=== PATIENT | female | born 1995 | race Caucasian/White ===

== ENCOUNTER 2016-12-12 14:44 | Inpatient (IN) | payer OTHER ==
[~2016-12-12] VITALS: Ht 160 cm; Wt 87.1 kg
[~2016-12-12 14:44] MED LIST: ACET325T33 PO; HYDR-906 PO; PRENAT PO
[2016-12-12 14:54] VITALS: Ht 160 cm; Wt 87.1 kg
[2016-12-12 14:55] VITALS: BP 109/56; PULSE 85; RESP 18
[2016-12-12] MEDS ORDERED: LACTATED RINGER'S 1,000 ML IV* SCH (15:30)
--- NOTE | 2016-12-12 16:33 | TRIAGE ---
OB Triage Datetime Report Generated by CPN: 12/12/2016 16:32 Datetime: 12/12/2016 16:00 Stage of : OB Triage Maternal Assessment Level of Consciousness: Fully Conscious Labor Evaluation Frequency: 6UC/HR Monitor Mode: External Duration (sec)2399: 50-90 Quality: Moderate Resting Tone [place]: Relaxed Heart Rate FHR Baseline Rate: 145 Monitor Mode: External US Variability: Moderate 6-25 bpm Accelerations: 15X15 Decelerations: None Pain Assessment Pain Scale: 7 Pain Presence: Intermittent Pain Type: Cramping Pain Location: Abdomen Pain Goal: 3 Pain Relief Measures: Comfort Measures Membrane Status: Intact Vaginal Bleeding: None Datetime: 12/12/2016 15:45 Vaginal Exam Dilatation (cms): 0.0 Exam By: khemani Datetime: 12/12/2016 14:53 Assessment Type: Triage Maternal Assessment Level of Consciousness: Fully Conscious DTR's/Clonus: DTRs 2+; No Clonus Headache: Denies Blurred Vision: No Respiratory Effort: Unlabored; Regular Rhythm; Equal Expansion Breath Sounds, Left: Clear and Equal Breath Sounds, Right: Clear and Equal Nausea/Vomiting: Denies RUQ Epigastric Pain: Denies Lower Extremities Edema: None Degree: None Upper Extremities Edema: None Degree: None Facial Edema: None Fall Risk Assessment History of Falling: (0) No Secondary Diagnosis: (0) No Ambulatory Aid: (0) Bedrest/Nurse Assist IV Therapy: (0) No Gait: (0) Normal/Bedrest/Immobile Mental Status: (0) Oriented to Own Ability Fall Score: 0 Fall Risk Score Definition: No Risk: No action required Datetime: 12/12/2016 14:47 Monitor Mode: External US Datetime: 08/29/2016 17:10 Time of Arrival: 12/12/2016 14:35 EGA: 36.0 Arrived By: Ambulatory Arrived From: Other Unit in Hospital Chief Complaint: PT SENT FROM [facility] FOR EVAL. OF UC'S Movement: Present Contractions: Irregular Rupture of Membranes: Denies Vaginal Bleeding: None Vaginal Discharge: Denies Recent Sexual Intercouse: Denies Abdominal Trauma: Not Applicable Patient Complaints: Cramping Time Provider Notified: 12/12/2016 14:35 Provider Notified: DELSHAD Initial Plan: EFM, IV HYDRATION, SVE Datetime: 08/29/2016 16:30 EGA: 21.0 Fall Score: 0 Fall Risk Score Definition: No Risk: No action required
[2016-12-12] MEDS: LACTATED RINGER'S 1,000 ML IV SCH (18:21)
[2016-12-13] MEDS: LACTATED RINGER'S 1,000 ML IV SCH ×2 (00:46→07:00)
[2016-12-13] MEDS ORDERED: TERBUTALINE 1 ML ONE (08:15)
[2016-12-13] MEDS ORDERED: TERBUTALINE 1 MG/ML INJ SC ONE (08:30)
[2016-12-13 09:04] LABS: ADD UMIC YES; URINE BILIRUBIN (Dip) NEGATIVE (NEGATIVE); URINE BLOOD (Dip) NEGATIVE (NEGATIVE); URINE COLOR LT. YELLOW (YELLOW); URINE GLUCOSE (Dip) NEGATIVE (NEGATIVE); URINE KETONES (Dip) NEGATIVE (NEGATIVE); URINE LEUKOCYTE ESTERASE (Dip) 3+ (NEGATIVE); URINE NITRITE (Dip) NEGATIVE (NEGATIVE); URINE TOTAL PROTEIN (Dip) NEGATIVE (NEGATIVE); URINE UROBILINOGEN (Dip) 0.2 E.U./dL (0.1-1.0)
[2016-12-13 09:35] LABS: BACTERIA,URINE OCCASIONAL; SQUAMOUS EPITHELIAL CELL,UR MODERATE; URINE RBCS NONE SEEN /HPF (0)
--- NOTE | 2016-12-13 12:18 | PN ---
Date/Time of Note Date/Time of Note DATE: 12/13/16 TIME: 12:11 OB Subjective Subjective Subjective Patient reports her pain is significantly less. She reports it now 3 out of 10. She denies leaking of fluid, vaginal bleeding or decreased movement. She denies any dysuria. She has no other complaints. OB Objective Objective Objective General appearance: Alert and oriented 4 and is not in any acute distress. Abdomen: Soft, gravid, nontender, no rebound tenderness no guarding no rigidity Fundal height consistent with gestational age NST: Appropriate for gestational a category 1, contractions every 3-6 minute noted. Patient does not feel all of them Extremities: No calf tenderness, no click no edema OB Assessment/Plan Other Assessment: IUP at 36+ weeks History of section 2 Here for observation due to contractions last night, significantly improved with IV hydration and rest Denies any urinary symptoms. UA requested, positive for leukocyte esterase Patient is asymptomatic. Urine culture requested Continue observation Patient was given a dose of terbutaline If symptoms resolve can go home with a strict labor precaution and follow-up with clinic in a couple of days We will have her urine culture followed in the clinic from the hospital Patient understands if she feels recurrence of her symptoms need to immediately return to labor and delivery Strict labor precautions and kick count discussed HARLEY CALDERÓN MD Dec 13, 2016 12:18
--- NOTE | 2016-12-13 12:23 | PD.PPDC ---
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 Headache, blurred vision, epigastric pain, or any other concerns. HARLEY CALDERÓN MD Dec 13, 2016 12:22
--- NOTE | 2016-12-13 12:31 | DS ---
Date/Time of Note Date/Time of Note DATE: 12/13/16 TIME: 12:23 Discharge Summary Admission/Discharge Info Admit Date/Time Dec 12, 2016 at 16:30 Discharge Date/Time 12/13/2016 Final Diagnosis False labor pain, resolved with hydration as well as one single dose of terbutaline Patient Condition: Good Procedures observation, overnight and IV hydration S/p one dose of terbutaline urine culture requested Hx of Present Illness 21 years old with IUP at 36 weeks and 1 day with History of C/s x 2 and care with Kira Wilson was admited by Dr. Malone last night due to false labor pain. She was admitted for observation. Received IV hydration. She was kept overnight. His symptoms significantly improved. Exam shows cervix was closed and long and she did not show any evidence of labor. She denied any urinary symptoms. UA was equivocal. Urine culture was requested that was pending. She was feeling slight discomfort due to mild contractions that resolved after she received a dose of terbutaline. She was feeling comfortable. There was no contraction noted on the monitor after observation and above measures. She tolerated diet and denied any symptoms. She was discharged home with strict labor precautions and kick count and follow-up in 2 days with OB office. She was advised to have a follow-up with her urine culture that was obtained in the hospital with OB office when she goes for her care. Also strict labor precautions discussed with the patient and advised to immediately return if she has regular contractions, decreased movement or any other concerns Hospital Course Unremarkable Home Meds Reported Medications Multivit/Min/Fol Ac/Iron/Pren* ( S*) 1 Tab Tab, 1 TAB PO DAILY, TAB 08/29/16 Discontinued Scripts Acetaminophen* (Tylenol*) 325 Mg Tablet, 2 TAB PO Q6 Y for PAIN AND OR ELEVATED TEMP, #20 TAB Prov:KELLEY AGUILAR DO 08/29/16 Hydrocodone/Acetaminophen ([place] 5-325 Tablet) 1 Each Tablet, 1 TAB PO Q6H Y for SEVERE PAIN LEVEL 7-10, #7 TAB Prov:KELLEY AGUILAR DO 08/29/16 Follow-up Plan In 2-3 days with her OB office Pending Labs Laboratory Tests Test 12/13/16 08:20 Urine Bacteria OCCASIONAL Urine Bilirubin NEGATIVE (NEGATIVE) Urine Clarity CLEAR (CLEAR) Urine Color LT. YELLOW (YELLOW) Urine Glucose NEGATIVE% (NEGATIVE) Urine Hemoglobin NEGATIVE (NEGATIVE) Urine Ketones NEGATIVE (NEGATIVE) Urine Leukocyte Esterase 3+ (NEGATIVE) Urine Microscopic RBC NONE SEEN/HPF (0) Urine Microscopic WBC 2-5/HPF (0) Urine Nitrite NEGATIVE (NEGATIVE) Urine Specific Gay 1.010 (1.003-1.030) Urine Squamous Epithelial Cells MODERATE Urine Total Protein NEGATIVE (NEGATIVE) Urine Urobilinogen 0.2 E.U./dL (0.1-1.0) Urine pH 7.5 (5.0-9.0) HARLEY CALDERÓN MD Dec 13, 2016 12:31
== END 2016-12-13 14:00 | disposition home or self-care (01) | DRG 780 ==
LOC: OBT 14:44 → L-D 14:44 → OBG 16:30 → OBT 16:30
PROVIDERS: ADMIT Obstetrics & Gynecology; ATTEND Obstetrics & Gynecology
DX: O47.03 False labor before 37 completed weeks of gestation, third trimester (principal); O34.219 Maternal care for unspecified type scar from previous cesarean delivery; Z3A.36 36 weeks gestation of pregnancy
CPT/HCPCS: 36415; 81001; 81003; 87086; 96360; G0463; J3105; J7120

== ENCOUNTER 2016-12-20 15:46 | Outpatient (CLI) | payer OTHER ==
[~2016-12-20 15:46] MED LIST changes: -ACET325T33 PO; -HYDR-906 PO
[2016-12-20] MEDS ORDERED: ACETAMINOPHEN 325 MG TAB PO ONE (16:30)
--- NOTE | 2016-12-20 17:46 | TRIAGE ---
OB Triage Datetime Report Generated by CPN: 12/20/2016 17:45 Datetime: 12/20/2016 16:21 Level of Consciousness: Fully Conscious DTR's/Clonus: DTRs 1+ Headache: Occipital Blurred Vision: No Respiratory Effort: Unlabored Breath Sounds, Left: Clear and Equal Breath Sounds, Right: Clear and Equal Nausea/Vomiting: Denies RUQ Epigastric Pain: Denies Facial Edema: 1+ Pattern: Normal: <= 5 Contractions in 10 Minutes Resting Tone Diablock: Relaxed FHR Baseline Rate: 140 Monitor Mode: External US FHR Baseline Changes: No Baseline Change Variability: Moderate 6-25 bpm Accelerations: 15X15 Decelerations: None Category: Category I Pain Scale: 3 Pain Presence: Constant Pain Type: Ache Pain Location: Head Pain Goal: 3 Membrane Status: Intact Datetime: 12/20/2016 16:00 Assessment Type: Triage Level of Consciousness: Fully Conscious DTR's/Clonus: DTRs 2+; No Clonus Headache: Denies Blurred Vision: No Respiratory Effort: Unlabored; Regular Rhythm; Equal Expansion Breath Sounds, Left: Clear and Equal Breath Sounds, Right: Clear and Equal Nausea/Vomiting: Denies RUQ Epigastric Pain: Denies Lower Extremities Edema: None Degree: None Upper Extremities Edema: None Degree: None Facial Edema: None History of Falling: (0) No Secondary Diagnosis: (0) No Ambulatory Aid: (0) Bedrest/Nurse Assist IV Therapy: (0) No Gait: (0) Normal/Bedrest/Immobile Mental Status: (0) Oriented to Own Ability Fall Score: 0 Fall Risk Score Definition: No Risk: No action required Datetime: 12/20/2016 15:45 Time of Arrival: 12/20/2016 15:45 EGA: 37.1 Arrived By: Ambulatory Arrived From: Other Unit in Hospital Chief Complaint: PT CAME IN FROM NST UNIT STATING THAT SHES HAVING CONTRACTIONS EVERYTIMES Movement: Present Contractions: Irregular Time Contractions Began: 12/19/2016 12:00 Rupture of Membranes: Denies Vaginal Discharge: Denies Recent Sexual Intercouse: Denies Abdominal Trauma: Not Applicable Additional Patient Complaints: HEADACHE Time Provider Notified: 12/20/2016 16:20 Provider Notified: BONIFACIO Initial Plan: MONITOR FOR UC'S TYLENOL 650 MG PO Datetime: 12/13/2016 14:00 Stage of : Antepartum Frequency: none Monitor Mode: External Resting Tone Diablock: Relaxed FHR Baseline Rate: 145 FHR Baseline Changes: No Baseline Change Variability: Moderate 6-25 bpm Accelerations: 15X15 Decelerations: None Category: Category I Pain Scale: 0 Pain Presence: None/Denies Pain Goal: 3 Datetime: 12/13/2016 13:00 Stage of : Antepartum Frequency: NONE Monitor Mode: External Resting Tone Diablock: Relaxed FHR Baseline Rate: 140 FHR Baseline Changes: No Baseline Change Variability: Moderate 6-25 bpm Accelerations: 15X15 Decelerations: None Category: Category I Pain Scale: 0 Pain Presence: None/Denies Pain Goal: 3 Datetime: 12/13/2016 12:30 Stage of : Antepartum Datetime: 12/13/2016 12:00 Stage of : Antepartum Frequency: NONE Monitor Mode: External Resting Tone Diablock: Relaxed FHR Baseline Rate: 145 FHR Baseline Changes: No Baseline Change Variability: Moderate 6-25 bpm Accelerations: 15X15 Decelerations: None Category: Category I Pain Scale: 0 Pain Presence: None/Denies Pain Goal: 3 Datetime: 12/13/2016 11:00 Stage of : Antepartum Frequency: NONE Monitor Mode: External Resting Tone Diablock: Relaxed FHR Baseline Rate: 140 Monitor Mode: External US FHR Baseline Changes: No Baseline Change Variability: Moderate 6-25 bpm Accelerations: 15X15 Decelerations: None Category: Category I Pain Scale: 0 Pain Presence: None/Denies Pain Goal: 3 Datetime: 12/13/2016 10:26 Stage of : Antepartum Datetime: 12/13/2016 10:00 Stage of : Antepartum Frequency: UTRINE IRRITABILITY Monitor Mode: External Quality: Mild Pattern: Normal: <= 5 Contractions in 10 Minutes Resting Tone Diablock: Relaxed FHR Baseline Rate: 140 Monitor Mode: External US FHR Baseline Changes: No Baseline Change Variability: Moderate 6-25 bpm Accelerations: 15X15 Decelerations: None Category: Category I Pain Scale: 2 Pain Presence: Intermittent Pain Type: Cramping Pain Location: Abdomen Pain Goal: 3 Pain Relief Measures: Comfort Measures Datetime: 12/13/2016 09:00 Stage of : Antepartum Frequency: 3 IN AN HOUR Monitor Mode: External Duration (sec)2399: 40-60 Quality: Mild Pattern: Normal: <= 5 Contractions in 10 Minutes Resting Tone Diablock: Relaxed FHR Baseline Rate: 130 Monitor Mode: External US FHR Baseline Changes: No Baseline Change Variability: Moderate 6-25 bpm Accelerations: 15X15 Decelerations: None Category: Category I Pain Scale: 2 Pain Presence: Intermittent Pain Type: Cramping Pain Location: Abdomen Pain Goal: 3 Pain Relief Measures: Comfort Measures Datetime: 12/13/2016 08:04 Stage of : Antepartum Datetime: 12/13/2016 08:00 Stage of : Antepartum Assessment Type: Ongoing Assessment Level of Consciousness: Fully Conscious DTR's/Clonus: DTRs 2+; No Clonus Headache: Denies Blurred Vision: No Respiratory Effort: Unlabored; Regular Rhythm; Equal Expansion Breath Sounds, Left: Clear and Equal Breath Sounds, Right: Clear and Equal Nausea/Vomiting: Denies RUQ Epigastric Pain: Denies Lower Extremities Edema: None Degree: None Upper Extremities Edema: None Degree: None Facial Edema: None History of Falling: (0) No Secondary Diagnosis: (0) No Ambulatory Aid: (0) Bedrest/Nurse Assist IV Therapy: (0) No Gait: (0) Normal/Bedrest/Immobile Mental Status: (0) Oriented to Own Ability Fall Score: 0 Fall Risk Score Definition: No Risk: No action required Frequency: 3-8 Monitor Mode: External Duration (sec)2399: 40-80 Quality: Mild Pattern: Normal: <= 5 Contractions in 10 Minutes Resting Tone Diablock: Relaxed FHR Baseline Rate: 140 Monitor Mode: External US FHR Baseline Changes: No Baseline Change Variability: Moderate 6-25 bpm Accelerations: 15X15 Decelerations: None Category: Category I Pain Scale: 3 Pain Presence: Intermittent Pain Type: Cramping Pain Location: Abdomen Pain Goal: 3 Pain Relief Measures: Comfort Measures Datetime: 12/13/2016 07:00 Frequency: x3 Monitor Mode: External Duration (sec)2399: 40 Quality: Mild Resting Tone Diablock: Relaxed FHR Baseline Rate: 145 Monitor Mode: External US Variability: Moderate 6-25 bpm Accelerations: 15X15 Decelerations: None Category: Category I Pain Presence: None/Denies Pain Type: N/A Pain Assessment Comments: pt stated pain is 0/10 on a scale,she appeared to be confortable. Datetime: 12/13/2016 06:00 Frequency: x3 Monitor Mode: External Duration (sec)2399: 40-50 Resting Tone Diablock: Relaxed FHR Baseline Rate: 135 Monitor Mode: External US Variability: Moderate 6-25 bpm Accelerations: 15X15 Decelerations: None Category: Category I Pain Presence: None/Denies Pain Type: N/A Datetime: 12/13/2016 05:00 Frequency: 0 Monitor Mode: External Resting Tone Diablock: Relaxed FHR Baseline Rate: 135 Monitor Mode: External US Variability: Moderate 6-25 bpm Accelerations: 15X15 Decelerations: None Category: Category I Datetime: 12/13/2016 04:00 Frequency: 0 Monitor Mode: External Resting Tone Diablock: Relaxed FHR Baseline Rate: 135 Monitor Mode: External US Variability: Moderate 6-25 bpm Accelerations: 15X15 Decelerations: None Category: Category I Comments: loc due to maternal movements. Datetime: 12/13/2016 03:00 Frequency: denies Monitor Mode: External Resting Tone Diablock: Relaxed FHR Baseline Rate: 140 Monitor Mode: External US Variability: Moderate 6-25 bpm Accelerations: 15X15 Decelerations: None Category: Category I Datetime: 12/13/2016 02:00 Frequency: 0 Monitor Mode: External Resting Tone Diablock: Relaxed FHR Baseline Rate: 140 Variability: Moderate 6-25 bpm Datetime: 12/13/2016 01:00 Frequency: 0 Monitor Mode: External Duration (sec)2399: DENIES Resting Tone Diablock: Relaxed Contraction Comments: SOME IRRITABILITY NOTED. FHR Baseline Rate: 140 Monitor Mode: External US Variability: Moderate 6-25 bpm Accelerations: 15X15 Decelerations: None Category: Category I Comments: LOSS OF CONTACT DUE TO MATERNAL MOVEMENTS. Pain Presence: None/Denies Pain Type: N/A Datetime: 12/13/2016 00:00 Frequency: X3 Monitor Mode: External Duration (sec)2399: 40 Quality: Mild Resting Tone Diablock: Relaxed Contraction Comments: SOME IRRITABILITY NOTED. FHR Baseline Rate: 145 Monitor Mode: External US Variability: Moderate 6-25 bpm Accelerations: 15X15 Decelerations: None Category: Category I Pain Presence: Intermittent Pain Type: Cramping; Contraction Pain Location: Back Pain Relief Measures: Comfort Measures Datetime: 12/12/2016 23:00 Frequency: 4-6 Monitor Mode: External Duration (sec)2399: 50-70 Quality: Mild Resting Tone Diablock: Relaxed FHR Baseline Rate: 140 Monitor Mode: External US Variability: Moderate 6-25 bpm Accelerations: 15X15 Decelerations: None Category: Category I Pain Scale: 2 Pain Presence: Intermittent Pain Type: Cramping; Contraction Pain Location: Back Datetime: 12/12/2016 22:00 Frequency: 4-5 Monitor Mode: External Duration (sec)2399: 40-60 Quality: Mild Resting Tone Diablock: Relaxed Contraction Comments: pt stated pain is less now 3/10 FHR Baseline Rate: 145 Monitor Mode: External US Variability: Moderate 6-25 bpm Accelerations: 15X15 Decelerations: None Category: Category I Pain Scale: 3 Pain Presence: Intermittent Pain Type: Cramping; Contraction Pain Location: Back Pain Relief Measures: Comfort Measures Datetime: 12/12/2016 21:00 Frequency: 3-7 Monitor Mode: External Duration (sec)2399: 40-60 Quality: Mild Resting Tone Diablock: Relaxed Contraction Comments: abdomen soft to palpate. FHR Baseline Rate: 135 Monitor Mode: External US Variability: Moderate 6-25 bpm Accelerations: 15X15 Decelerations: None Category: Category I Pain Scale: 4 Pain Presence: Intermittent Pain Type: Cramping; Contraction Pain Location: Back Pain Relief Measures: Comfort Measures Datetime: 12/12/2016 20:00 Frequency: 4-8 Monitor Mode: External Duration (sec)2399: 40-60 Quality: Mild Resting Tone Diablock: Relaxed FHR Baseline Rate: 135 Monitor Mode: External US Variability: Moderate 6-25 bpm Accelerations: 15X15 Decelerations: None Category: Category I Pain Scale: 6 Pain Presence: Intermittent Pain Type: Contraction Pain Location: Back Pain Relief Measures: Comfort Measures Datetime: 12/12/2016 19:15 Stage of : Antepartum Assessment Type: Ongoing Assessment Level of Consciousness: Fully Conscious DTR's/Clonus: DTRs 2+; No Clonus Headache: Denies Blurred Vision: No Respiratory Effort: Unlabored; Regular Rhythm; Equal Expansion Breath Sounds, Left: Clear and Equal Breath Sounds, Right: Clear and Equal Nausea/Vomiting: Denies RUQ Epigastric Pain: Denies Lower Extremities Edema: None Degree: None Upper Extremities Edema: None Degree: None Facial Edema: None Temperature Route: Oral History of Falling: (0) No Secondary Diagnosis: (0) No Ambulatory Aid: (0) Bedrest/Nurse Assist IV Therapy: (0) No Gait: (0) Normal/Bedrest/Immobile Mental Status: (0) Oriented to Own Ability Fall Score: 0 Fall Risk Score Definition: No Risk: No action required Pain Scale: 6 Pain Presence: Intermittent Pain Type: Contraction Pain Location: Back Pain Relief Measures: Comfort Measures (Annotations: INSTRUCTED PT TO STAY IN HER SIDE .) Datetime: 12/12/2016 19:08 Stage of : Antepartum Datetime: 12/12/2016 19:00 Stage of : Antepartum Frequency: 4-6 Monitor Mode: External Quality: Mild Pattern: Normal: <= 5 Contractions in 10 Minutes Resting Tone Diablock: Relaxed FHR Baseline Rate: 140 Monitor Mode: External US FHR Baseline Changes: No Baseline Change Variability: Moderate 6-25 bpm Accelerations: 15X15 Decelerations: None Category: Category I Pain Scale: 5 Pain Presence: Intermittent Pain Type: Cramping Pain Location: Abdomen Pain Goal: 3 Pain Relief Measures: Comfort Measures Datetime: 12/12/2016 17:59 Stage of : Antepartum Frequency: 3-7 Monitor Mode: External Duration (sec)2399: 50-80 Quality: Moderate Pattern: Normal: <= 5 Contractions in 10 Minutes Resting Tone Diablock: Relaxed FHR Baseline Rate: 140 Monitor Mode: External US FHR Baseline Changes: No Baseline Change Variability: Moderate 6-25 bpm Accelerations: 15X15 Decelerations: None Category: Category I Pain Scale: 5 Pain Presence: Intermittent Pain Type: Cramping Pain Location: Abdomen Pain Goal: 3 Pain Relief Measures: Comfort Measures Datetime: 12/12/2016 17:43 Assessment Type: Admission Assessment Level of Consciousness: Fully Conscious DTR's/Clonus: DTRs 2+; No Clonus Headache: Denies Blurred Vision: No Respiratory Effort: Unlabored; Regular Rhythm; Equal Expansion Breath Sounds, Left: Clear and Equal Breath Sounds, Right: Clear and Equal Nausea/Vomiting: Denies RUQ Epigastric Pain: Denies Lower Extremities Edema: None Degree: None Upper Extremities Edema: None Degree: None Facial Edema: None History of Falling: (0) No Secondary Diagnosis: (0) No Ambulatory Aid: (0) Bedrest/Nurse Assist IV Therapy: (0) No Gait: (0) Normal/Bedrest/Immobile Mental Status: (0) Oriented to Own Ability Fall Score: 0 Fall Risk Score Definition: No Risk: No action required Datetime: 12/12/2016 17:08 Time of Arrival: 12/12/2016 16:44 EGA: 36.0 Arrived By: Ambulatory Arrived From: Other Unit in Hospital Datetime: 12/12/2016 14:53 Fall Score: 0 Fall Risk Score Definition: No Risk: No action required Datetime: 08/29/2016 17:10 EGA: 36.0 Datetime: 08/29/2016 16:30 EGA: 21.0 Fall Score: 0 Fall Risk Score Definition: No Risk: No action required
--- NOTE | 2016-12-20 19:34 | QN ---
Documentation Comment 21-year-old with IUP at 37 weeks and 1 day with history of 2 presents at due to occasional uterine contractions seen during NST. She also complained of headache. Denies any blurred vision or epigastric pain. Her blood pressure was normal and she denies any history of hypertension during . Patient past OB history significant for history of IUFD at 35 weeks currently being followed by biweekly NST. She denies feeling any contractions, leaking of fluid, vaginal bleeding or decreased movement. She has been currently followed for her obstetrical care with Dr. VALDOVINOS. Physical exam: General appearance: Alert and oriented 4 is not in acute distress. Abdomen: Soft, gravid, fundal height consistent with gestational age. No abdominal tenderness, no rigidity, Extremities: No calf tenderness, no click no edema. NST: Category 1 No contractions seen on the monitor Patient is comfortable and denies any abdominal pain or low back pain her menstrual cramp. Her headache resolved after she received a dose of Tylenol. Patient will be discharged home. Labor precaution and kick count discussed next Continue follow-up with anesthetic clinic twice a week and follow-up with OB office every week. Patient has been scheduled for repeat section at 39 weeks. Labor precaution and strict kick count discussed with the patient Return to triage if she feels decreased movement, abdominal cramps or pain or labor pain or leaking of fluid or any other concern. Next Patient verbalized understanding. HARLEY CALDERÓN MD Dec 20, 2016 19:33
--- NOTE | 2016-12-20 21:30 | NSTRPT ---
NST Information Datetime Report Generated by CPN: 12/20/2016 21:30 Datetime: 12/20/2016 14:00 NST Information EGA: 37.1 Test Number: 3 Time on Monitor: 12/20/2016 14:30 Time off Monitor: 12/20/2016 14:53 NST Duration (Min): 23 Reason for NST: Previous Demise Test and Monitor Explained: Monitor Explained; Test Explained; Verbalized Understanding Pulse: 100 Resp: 20 SBP: 104 DBP: 55 Test Evaluation NST Interventions: PO Hydration Patient States Movement: Present Contraction Frequency: X2 FHR Baseline : 135 Variability: Moderate 6-25bpm Accelerations: 15X15 Decelerations: None FHR Category: Category I NST Results: Reactive Comments: To u/s, TACO 18.0, Cephalic 1457-Report to tanika Sampson NST/ TACO _ VS results with 2 u/c's, c/o RAMIREZ, _ back pain. Pt wishes to go to hosp. Order received to re schedule and tell pt she can go to the hosp (triage) for evaluation. Pt informed she can go to [facility] for eval, labor precautions with kick count instructions reviwed and follow up NST appt for 12/22 given. States understanding and denies further questions at this time. Electronically Signed By E-Signature: with User ID: [email or web address] Datetime: 12/12/2016 13:01 NST Information EGA: 36.0 Test Number: 2 Time on Monitor: 12/12/2016 13:21 Time off Monitor: 12/12/2016 13:54 NST Duration (Min): 33 Reason for NST: Previous Demise Test and Monitor Explained: Monitor Explained; Test Explained; Verbalized Understanding Pulse: 79 Resp: 18 SBP: 102 DBP: 63 Test Evaluation NST Interventions: PO Hydration; Reposition Patient Patient States Movement: Present Contraction Frequency: x5 FHR Baseline : 140 Variability: Moderate 6-25bpm Accelerations: 15X15 Decelerations: None FHR Category: Category I NST Results: Reactive Comments: To u/s, TACO 21.1, cephalic 1413-Report to Dr Malone, order received for pt to go to Triage for IV hydration for u/c's and t o give follow up NST appt for 12/15. POC explained to pt, states understanding and denies further que stions at this time. Report called to Taina VINES, Triage. Electronically Signed By E-Signature: with User ID: [id number] Datetime: 11/30/2016 14:57 NST Information EGA: 34.2 NST Duration (Min): 28
== END 2016-12-20 17:24 | disposition home or self-care (01) ==
LOC: OBT 15:46 → L-D 15:47 → OBT 17:24
PROVIDERS: ATTEND Obstetrics & Gynecology
DX: O47.1 False labor at or after 37 completed weeks of gestation (principal); Z3A.39 39 weeks gestation of pregnancy
CPT/HCPCS: Z7500; Z7610; G0463

== ENCOUNTER 2016-12-22 15:41 | Inpatient (IN) | payer OTHER ==
[~2016-12-22] VITALS: Ht 165.1 cm; Wt 88.7 kg
[2016-12-22 15:59] VITALS: Ht 165.1 cm; Wt 88.7 kg
[2016-12-22 16:03] VITALS: BP 113/59; PULSE 103
--- NOTE | 2016-12-22 18:24 | HP ---
Date/Time of Note Date/Time of Note DATE: 12/22/16 TIME: 18:23 OB - History Hx of Present Free Text/Dictation @36+6 wks GA With Hx of IUFD and Late decel in perinatalogy unit and Hx of 2 previous c/section Patietn is sera : 4 Para: 2 Ultrasounds: Normal mid trimester US Obstetrical Complications: None Medical Complications: None Past Family/Social History * Past Medical, Surgical, Family and Obstetric Histories reviewed from chart. OB Admission Exam Vital Signs Vital Signs Vital Signs Date Time Temp Pulse Resp B/P Pulse Ox O2 Delivery O2 Flow Rate FiO2 12/22/16 16:03 97.9 103 113/59 Room Air Physical Exam Abdomen: WNL Membranes: Intact Heart Rate: 140's Accelerations: Accelerations Present Decelerations: Early Decelerations Varibility: Moderate Contractions on Admission: 6-10 Minutes Apart OB Assessment/Plan Plan: Expectant Management BROOKE JEFFREY M.D. Dec 22, 2016 18:24
--- NOTE | 2016-12-22 18:47 | TRIAGE ---
OB Triage Datetime Report Generated by CPN: 12/22/2016 18:47 Datetime: 12/22/2016 18:01 Frequency: X5 Monitor Mode: External Duration (sec)2399: 40-60 Quality: Mild Resting Tone [place]: Relaxed FHR Baseline Rate: 140 Monitor Mode: External US FHR Baseline Changes: No Baseline Change Variability: Moderate 6-25 bpm Accelerations: 15X15 Decelerations: None Category: Category I Pain Scale: 3 Pain Presence: Intermittent Pain Type: Cramping Pain Location: Abdomen Pain Relief Measures: Comfort Measures Datetime: 12/22/2016 16:58 Frequency: x1 Monitor Mode: External Duration (sec)2399: 70 Quality: Mild Resting Tone [place]: Relaxed FHR Baseline Rate: 140 Monitor Mode: External US FHR Baseline Changes: No Baseline Change Variability: Moderate 6-25 bpm Accelerations: 15X15 Decelerations: None Category: Category I Datetime: 12/22/2016 15:55 Stage of : OB Triage Assessment Type: Triage Level of Consciousness: Fully Conscious DTR's/Clonus: DTRs 2+; No Clonus Headache: Denies Blurred Vision: No Respiratory Effort: Unlabored; Regular Rhythm; Equal Expansion Breath Sounds, Left: Clear and Equal Breath Sounds, Right: Clear and Equal Nausea/Vomiting: Denies RUQ Epigastric Pain: Denies Lower Extremities Edema: None Degree: None Upper Extremities Edema: None Degree: None Facial Edema: None Temperature Route: Oral History of Falling: (0) No Secondary Diagnosis: (0) No Ambulatory Aid: (0) Bedrest/Nurse Assist IV Therapy: (0) No Gait: (0) Normal/Bedrest/Immobile Mental Status: (0) Oriented to Own Ability Fall Score: 0 Fall Risk Score Definition: No Risk: No action required Frequency: none Monitor Mode: External Resting Tone [place]: Relaxed FHR Baseline Rate: 140 Monitor Mode: External US FHR Baseline Changes: No Baseline Change Variability: Moderate 6-25 bpm Decelerations: None Category: Category I Pain Scale: 0 Pain Presence: None/Denies Pain Type: N/A Datetime: 12/20/2016 17:24 Time of Arrival: 12/22/2016 15:39 EGA: 36.6 Arrived By: Ambulatory Arrived From: Other Unit in Hospital Chief Complaint: pt is here from [facility] clinic for extended monitoring due to late deceleration , leaking fluids for 15 days Movement: Present Contractions: Occasional Rupture of Membranes: Unsure Vaginal Bleeding: None Vaginal Discharge: Present Recent Sexual Intercouse: Denies Abdominal Trauma: Not Applicable Patient Complaints: Other Time Provider Notified: 12/22/2016 16:06 Provider Notified: DR VALDOVINOS Initial Plan: NST, ROM +, SPECULUM EXAM Datetime: 12/20/2016 17:21 Level of Consciousness: Fully Conscious DTR's/Clonus: DTRs 1+ Headache: Denies Blurred Vision: No Respiratory Effort: Unlabored Breath Sounds, Left: Clear and Equal Breath Sounds, Right: Clear and Equal Nausea/Vomiting: Denies RUQ Epigastric Pain: Denies Facial Edema: None Frequency: NONE Monitor Mode: External Resting Tone [place]: Relaxed FHR Baseline Rate: 135 Monitor Mode: External US Variability: Moderate 6-25 bpm Accelerations: 15X15 Decelerations: None Category: Category I Pain Presence: None/Denies Pain Type: N/A Membrane Status: Intact Datetime: 12/20/2016 16:00 Fall Score: 0 Fall Risk Score Definition: No Risk: No action required Datetime: 12/20/2016 15:45 EGA: 36.4 Datetime: 12/13/2016 08:00 Fall Score: 0 Fall Risk Score Definition: No Risk: No action required Datetime: 12/12/2016 19:15 Fall Score: 0 Fall Risk Score Definition: No Risk: No action required Datetime: 12/12/2016 17:43 Fall Score: 0 Fall Risk Score Definition: No Risk: No action required Datetime: 12/12/2016 17:08 EGA: 35.3 Datetime: 12/12/2016 14:53 Fall Score: 0 Fall Risk Score Definition: No Risk: No action required Datetime: 08/29/2016 17:10 EGA: 35.3 Datetime: 08/29/2016 16:30 EGA: 20.3 Fall Score: 0 Fall Risk Score Definition: No Risk: No action required
[2016-12-22] MEDS: LACTATED RINGER'S 1,000 ML IV SCH ×2 (20:28→22:18)
[2016-12-23] MEDS: LACTATED RINGER'S 1,000 ML IV SCH (04:40)
[2016-12-23] MEDS ORDERED: MULTIVIT/MIN/FOLATE/IRON/PREN TAB PO SCH (09:00)
--- NOTE | 2016-12-23 12:21 | PD.PPDC ---
EXHIBIT ELECTRICIAN Discharge Instruction Condition Patient Condition: Fair Diet Diet: Resume Regular Diet Activity/Restrictions Activity: Normal Activity Restrictions: No Exercising No Lifting Follow-up Follow-up with Physician: 3, Day/Days Return to clinic for BALANCE WHEEL MOTION INSPECTOR Instructions: Worsening abdominal pain Comment: Decreased movement. KSENIA MADSEN MD Dec 23, 2016 12:21
--- NOTE | 2016-12-23 12:25 | DS ---
Date/Time of Note Date/Time of Note DATE: 12/23/16 TIME: 12:22 Obstetrical Discharge Record Final Diagnosis Final Diagnosis: Term not delivered Other Final Diagnosis heart deceleration in Perinatology clinic, no recurrences. contractions, resolved with hydration. Complications Other ( heart rate deceleration in perinatology clinic, no recurrences. contractions, resolved with hydration.) Augmentation: No Induction: No Condition on Discharge Physical Assessment Last Vitals: BP 112/56 Voiding: Yes Bowel Movement: Yes Breast: Soft, non-tender Fundus: Other (nontender,gravid.) Calf Tenderness: No Patient Condition: KSENIA Garibay MD Dec 23, 2016 12:25
== END 2016-12-23 13:35 | disposition home or self-care (01) | DRG 782 ==
LOC: OBT 15:41 → L-D 15:41 → OBT 18:48 → L-D 18:48 → OBG 23:24
PROVIDERS: ADMIT Obstetrics & Gynecology; ATTEND Obstetrics & Gynecology
DX: O76 Abnormality in fetal heart rate and rhythm complicating labor and delivery (principal); Z3A.36 36 weeks gestation of pregnancy
CPT/HCPCS: 36415; 84112; 96360; 96361; G0463; J7120

== ENCOUNTER 2017-01-06 08:54 | Inpatient (IN) | payer OTHER ==
[~2017-01-06] VITALS: Ht 165.1 cm; Wt 90.9 kg
[~2017-01-06 08:54] MED LIST changes: +OXYTOCIN 30 UNITS/LR 500 ML BAG IV ONE
[2017-01-06 09:12] VITALS: Ht 165.1 cm; Wt 90.9 kg
[2017-01-06 09:19] VITALS: BP 116/66; PULSE 82; RESP 18
[2017-01-06] MEDS ORDERED: AMPICILLIN 2 GM/NS (PMX) 100 ML IV ONE (09:30)
[2017-01-06] MEDS ORDERED: MISOPROSTOL 200 MCG TAB PR PRN ×2 (09:30→18:00)
[2017-01-06] MEDS ORDERED: CARBOPROST 250 MCG INJ IM PRN ×2 (09:30→18:00)
[2017-01-06] MEDS ORDERED: METHYLERGONOVINE 0.2 MG INJ IM PRN ×2 (09:30→18:00)
[2017-01-06] MEDS ORDERED: CEFAZOLIN 2 GM/50 ML (PMX) 50 ML IV SCH (09:30)
[2017-01-06] MEDS ORDERED: OXYTOCIN 30 UNITS/LR 500 ML IV PRN ×2 (09:30→18:00)
[2017-01-06 09:39] LABS: ADD SCAN DIFF NO
[2017-01-06 09:42] LABS: BASOPHILS % 0.4 % (0.0-2.0); EOSINOPHILS # 0.1 10^3/ul (0.0-0.5); EOSINOPHILS % 1.1 % (0.0-7.0); HEMATOCRIT 39.9 % (37.0-47.0); HEMOGLOBIN 13.4 g/dl (12.0-16.0); LYMPHOCYTES # 1.3 10^3/ul (0.8-2.9); LYMPHOCYTES % 15.7 % (15.0-51.0); MEAN CORPUSCULAR HEMOGLOBIN 28.8 pg (29.0-33.0); MEAN CORPUSCULAR HGB CONC 33.6 g/dl (32.0-37.0); MEAN CORPUSCULAR VOLUME 85.8 fl (82.0-101.0); MONOCYTE # 0.6 10^3/ul (0.3-0.9); MONOCYTES % 7.5 % (0.0-11.0); NEUTROPHIL # 6.2 10^3/ul (1.6-7.5); NEUTROPHILS % 74.6 % (39.0-77.0); PLATELET COUNT 161 10^3/UL (140-415); RED BLOOD COUNT 4.65 10^6/ul (4.20-5.40); RED CELL DISTRIBUTION WIDTH 14.1 % (11.5-14.5); WHITE BLOOD COUNT 8.4 10^3/ul (4.8-10.8)
[2017-01-06] MEDS: LACTATED RINGER'S 1,000 ML IV SCH ×3 (09:43→17:31)
[2017-01-06 09:54] LABS: INR 0.89; PT RATIO 0.9
[2017-01-06] MEDS ORDERED: PHENYLephrine (100 MCG/ML) 5ML SYG ONE ×4 (10:43→11:23)
[2017-01-06] MEDS ORDERED: morphine SULFATE/PF (10 MG/10 ML) INJ ONE (10:43)
--- NOTE | 2017-01-06 10:52 | PREOPHP ---
DATE OF ADMISSION: 01/06/2017 HISTORY OF PRESENT ILLNESS: A 21-year-old female 4, para 2-0-1-1, estimated date of deliver y 01/13/2017 at 39 weeks, is admitted for repeat section. PAST MEDICAL HISTORY: Unremarkable. PAST SURGICAL HISTORY: section x2. ALLERGIES: NO KNOWN ALLERGIES. FAMILY HISTORY: Diabetes. PHYSICAL EXAMINATION: VITAL SIGNS: The patient is afebrile. Vital signs stable. HEAD AND NECK: Within normal limits. CHEST: Within normal limits. ABDOMEN: Soft, nontender and gravid. EXTREMITIES: Within normal limits. NEUROLOGIC: Within normal limits. IMPRESSION: at 39 weeks with previous section x2. PLAN: Delivery by repeat section. Risks, benefits and alternatives of the procedure were explained to patient. The patient said she understood and gave informed consent for the procedure. Dictated By: JAKI DAO/LUIS Conf#: [id number] DID#: [id number]
[2017-01-06] MEDS ORDERED: ONDANSETRON 4 MG INJ ONE (10:57)
[2017-01-06 11:07] LABS: BARBITURATES Negative (NEGATIVE)
[2017-01-06] MEDS ORDERED: EPHEDrine SULFATE 50 MG/5 ML SYG ONE (11:08)
[2017-01-06] MEDS ORDERED: FENTAnyl 50 MCG/ML VIAL ONE (11:08)
[2017-01-06 11:09] LABS: CANNABINOIDS Negative (NEGATIVE)
[2017-01-06 11:11] LABS: BENZODIAZEPINES Negative (NEGATIVE); COCAINE Negative (NEGATIVE); OPIATES Negative (NEGATIVE)
[2017-01-06] MEDS ORDERED: FENTAnyl 50 MCG/ML VIAL IV PRN (11:30)
[2017-01-06] MEDS ORDERED: DIPHENHYDRAMINE 50 MG INJ IV PRN ×2 (11:30)
[2017-01-06] MEDS ORDERED: PROCHLORPERAZINE 10 MG INJ IV PRN (11:30)
[2017-01-06] MEDS ORDERED: ONDANSETRON 4 MG INJ IV PRN ×2 (11:30)
[2017-01-06] MEDS ORDERED: MEPERIDINE 25 MG INJ IV PRN (11:30)
[2017-01-06] MEDS ORDERED: NALOXONE (0.4 MG/ML) INJ IV PRN (11:30)
[2017-01-06] MEDS ORDERED: METOCLOPRAMIDE 10 MG INJ IV PRN (11:30)
[2017-01-06] MEDS ORDERED: HYDROmorphONE (0.2 MG/ML) 10ML SYG IV PRN ×3 (11:30)
[2017-01-06] MEDS ORDERED: HYDROmorphONE 1 MG/ML SYG IV PRN ×2 (11:30)
--- NOTE | 2017-01-06 12:00 | OPR ---
DATE OF OPERATION: 01/06/2017 PREOPERATIVE DIAGNOSES: 1. at 39 weeks. 2. Previous section x2. POSTOPERATIVE DIAGNOSES: 1. at 39 weeks. 2. Previous section x2. OPERATION PERFORMED: Repeat low transverse section. SURGEON: Jaki Malone MD DISCIPLINARY HEARING OFFICER: Zoya Ellis MD ANESTHESIA: Spinal. ANESTHESIOLOGIST: Dr. Morgan. PROCEDURE: The patient was taken to the operating room and placed on the operating table. After de anda ccessful spinal anesthesia was given, the patient was placed in supine position. The area was prepa red and draped in the usual sterile fashion. Spinal anesthesia was tested and was satisfactory. Us ing a scalpel, Pfannenstiel incision was made about 2 fingerbreadths above the symphysis pubis. The incision was carried to the fascia. The fascia was incised and extended bilaterally with Kohli scis sors. Two Kochers were used to separate the fascia from the muscle. The muscle was dissected down to peritoneum. The peritoneum was secured with 2 Kellys and incised with Metzenbaum scissors. Usin g a scalpel, a small transverse incision was made in the lower segment of the uterus. Upon entering the uterine cavity, bandage scissors were inserted to extend the incision bilaterally, curved up. Baby was delivered from cephalic presentation. After suctioning clear of amniotic fluid, the baby w as handed off to the surveyor hydrographic in attendance. Apgars were 8 and 9. The placenta was delivered without difficulty. The uterus was closed with #1 Monocryl continuous locked. After assuring hemos tasis, both ovaries and tubes were inspected, all looked normal. The peritoneal cavity was irrigate d with warm saline. Peritoneum was closed with 2-0 Vicryl continuous. The fascia was closed with # 1 Vicryl continuous in 2 segments. The skin was closed with deborah. ESTIMATED BLOOD LOSS: 600 mL. COMPLICATIONS: None. COUNTS: All counts were correct. Dictated By: JAKI MALONE MD GD/NTS Conf#: [id number] DID#: [id number] CC: ZOYA ELLIS MD;*EndCC*
[2017-01-06] MEDS: KETOROLAC 30 MG INJ IV PRN (12:03)
[2017-01-06] MEDS: OXYTOCIN 30 UNITS/LR 500 ML IV SCH ×4 (12:35→21:31)
[2017-01-06] MEDS: AMPICILLIN 1 GM/NS (PMX) 50 ML IV SCH ×2 (13:30→16:07)
[2017-01-06 15:00] VITALS: BP 100/59; PULSE 73; RESP 18
[2017-01-06] MEDS ORDERED: LANOLIN 7 GM TUBE TOP PRN (18:00)
[2017-01-06 20:00] VITALS: BP 106/61; PULSE 73; RESP 19
[2017-01-06] MEDS: SENNA/DOCUSATE NA (8.6MG/50MG) TAB PO SCH (20:47)
[2017-01-07] MEDS: LACTATED RINGER'S 1,000 ML IV SCH ×2 (00:42→09:30)
[2017-01-07] MEDS: KETOROLAC 30 MG INJ IV PRN ×2 (03:35→11:08)
[2017-01-07 03:50] VITALS: BP 91/57; PULSE 68; RESP 17
--- NOTE | 2017-01-07 07:20 | CONS ---
Date/Time of Note Date/Time of Note DATE: 01/07/17 TIME: 07:19 Consultation Date/Type/Reason Admit Date/Time Jan 06, 2017 at 08:54 Initial Consult Date 01/07/17 Type of Consultation: Anesthesiology Reason for Consultation Follow up visit 24 HR Interval Summary Free Text/Dictation Pt seen at bedside is s/p c/s POD#1. Pt received Duramorph spinal for post op pain control. She states her pain is adequately controlled. No N/V/D/RAMIREZ. Will follow up PRN. Exam/Review of Systems Vital Signs Vitals Vital Signs Date Time Temp Pulse Resp B/P Pulse Ox O2 Delivery O2 Flow Rate FiO2 01/07/17 03:50 98.1 68 17 91/57 Room Air Intake and Output 01/06/17 01/06/17 01/07/17 15:00 23:00 07:00 Intake Total 1400 ml 1375 ml 850 ml Output Total 1200 ml 300 ml 1600 ml Balance 200 ml 1075 ml -750 ml Results Result Diagram: 01/06/17 0931 Results 24 hrs Laboratory Tests Test 01/06/17 09:31 01/06/17 10:02 White Blood Count 8.4 Red Blood Count 4.65 Hemoglobin 13.4 Hematocrit 39.9 Mean Corpuscular Volume 85.8 Mean Corpuscular Hemoglobin 28.8 L Mean Corpuscular Hemoglobin Concent 33.6 Red Cell Distribution Width 14.1 # Platelet Count 161 Mean Platelet Volume 11.0 H Neutrophils % 74.6 Lymphocytes % 15.7 Monocytes % 7.5 Eosinophils % 1.1 Basophils % 0.4 Nucleated Red Blood Cells % 0.0 Neutrophils # 6.2 Lymphocytes # 1.3 Monocytes # 0.6 Eosinophils # 0.1 Basophils # 0.0 Nucleated Red Blood Cells # 0.0 Prothrombin Time 12.0 L Prothrombin Time Ratio 0.9 INR International Normalized Ratio 0.89 Activated Partial Thromboplast Time 25.0 Rapid Plasma Reagin NONREACTIVE Hepatitis B Surface Antigen NEGATIVE Urine Opiates Screen Negative Urine Barbiturates Negative Urine Amphetamines Screen Negative Urine Benzodiazepines Screen Negative Urine Cocaine Screen Negative Urine Cannabinoids Negative Medications Medications Current Medications Ketorolac Tromethamine (Toradol) 30 mg Q6H PRN IV PAIN Last administered on 01/07t 03:35; Admin Dose 30 MG; Start 01/06/17 at 11:30; Stop 01/07/17 at 11:29 Hydromorphone HCl (Dilaudid) 0.2 mg Q3H PRN IV PAIN LEVEL 1-5; Start 01/06/17 at 11:30; Stop 01/07/17 at 11:29 Hydromorphone HCl (Dilaudid) 0.4 mg Q3H PRN IV PAIN LEVEL 6-10; Start 01/06/17 at 11:30; Stop 01/07/17 at 11:29 Diphenhydramine HCl (Benadryl) 25 mg Q6H PRN IV ITCHING; Start 01/06/17 at 11:30 ; Stop 01/07/17 at 11:29 Ondansetron HCl (Zofran Inj) 4 mg Q6H PRN IV NAUSEA AND/OR VOMITING; Start 01/06 at 11:30; Stop 01/07/17 at 11:29 Prochlorperazine 10 mg 10 mg ONCE PRN IV NAUSEA AND/OR VOMITING; Start 01/06/17 at 11:30; Stop 01/07/17 at 11:29 Lactated Ringer's (Lr) 1,000 ml @ 125 mls/hr Q8H IV Last administered on 00:42; Admin Dose 125 MLS/HR; Start 01/06/17 at 17:31 Oxycodone/ Acetaminophen (Percocet (5/ 325)) 1 tab Q4H PRN PO PAIN LEVEL 4-6; Start 01/06/17 at 18:00 Oxycodone/ Acetaminophen (Percocet (5/ 325)) 2 tab Q4H PRN PO PAIN LEVEL 7-10; Start 01/06/17 at 18:00 Ibuprofen (Motrin) 800 mg Q8 PO ; Start 01/07/17 at 14:00 Simethicone (Mylicon) 160 mg Q8H PRN PO DISTENSION/GAS/BLOATING; Start 01/06/17 at 18:00 Senna/Docusate Sodium (Senokot-S) 1 tab BID PO Last administered on 01/06/17 20 :47; Admin Dose 1 TAB; Start 01/06/17 at 21:00 Diphtheria/ Tetanus/Acell Pertussis 0.5 ml 0.5 ml ONCE ONCE IM* ; Start 01/09/17 at 09:00; Stop 01/09/17 at 09:01 Oxytocin/Lactated Ringer's 500 ml @ 0 mls/hr ONCE PRN IV For Hemorrhage Management; Start 01/06/17 at 18:00 Methylergonovine Maleate (Methergine) 0.2 mg ONCE PRN IM VAGINAL BLEEDING; Start 01/06/17 at 18:00 Carboprost Tromethamine (Hemabate) 250 mcg ONCE PRN IM VAGINAL BLEEDING; Start 01/06/17 at 18:00 Misoprostol (Cytotec) 1,000 mcg ONCE PRN DC VAGINAL BLEEDING; Start 01/06/17 at 18:00 Influenza Virus Vaccine (Fluzone) 0.5 ml ONCE ONCE IM* ; Start 01/07/17 at 18:00 ; Stop 01/07/17 at 18:01 RONI BACK Jan 07, 2017 07:20
[2017-01-07 07:30] LABS: ADD SCAN DIFF NO
[2017-01-07 07:38] LABS: BASOPHILS % 0.2 % (0.0-2.0); EOSINOPHILS # 0.1 10^3/ul (0.0-0.5); EOSINOPHILS % 0.6 % (0.0-7.0); HEMATOCRIT 34.8 % (37.0-47.0); HEMOGLOBIN 11.1 g/dl (12.0-16.0); LYMPHOCYTES # 1.8 10^3/ul (0.8-2.9); LYMPHOCYTES % 15.5 % (15.0-51.0); MEAN CORPUSCULAR HEMOGLOBIN 27.8 pg (29.0-33.0); MEAN CORPUSCULAR HGB CONC 31.9 g/dl (32.0-37.0); MEAN CORPUSCULAR VOLUME 87.2 fl (82.0-101.0); MEAN PLATELET VOLUME 12.1 fl (7.4-10.4); MONOCYTE # 0.8 10^3/ul (0.3-0.9); NEUTROPHIL # 8.8 10^3/ul (1.6-7.5); NEUTROPHILS % 76.1 % (39.0-77.0); PLATELET COUNT 142 10^3/UL (140-415); RED BLOOD COUNT 3.99 10^6/ul (4.20-5.40); RED CELL DISTRIBUTION WIDTH 14.4 % (11.5-14.5); WHITE BLOOD COUNT 11.5 10^3/ul (4.8-10.8)
[2017-01-07 08:00] VITALS: BP 103/55; PULSE 72; RESP 18
[2017-01-07] MEDS: SENNA/DOCUSATE NA (8.6MG/50MG) TAB PO SCH ×2 (09:29→21:10)
[2017-01-07] MEDS: IBUPROFEN 800 MG TAB PO SCH ×2 (13:41→21:57)
[2017-01-07] MEDS: OXYCODONE/ACETAMINOPHEN (5/325) TAB PO PRN ×2 (15:05→23:02)
[2017-01-07 16:15] VITALS: BP 104/52; PULSE 70; RESP 19
[2017-01-07] MEDS ORDERED: INFLUENZA VIRUS VACCINE 0.5 ML SYG IM* ONE (18:00)
--- NOTE | 2017-01-07 18:28 | QN ---
Documentation Comment No compl,aint Afebrile VSS Abdomen soft POD #1 Stable Ambulate Advance diet. JAKI VALDOVINOS MD Jan 07, 2017 18:28
[2017-01-07 19:45] VITALS: BP 94/50; PULSE 71; RESP 17
[2017-01-07 23:45] VITALS: BP 111/64; PULSE 68; RESP 18
[2017-01-08] MEDS: OXYCODONE/ACETAMINOPHEN (5/325) TAB PO PRN ×3 (02:38→20:47)
[2017-01-08] MEDS: IBUPROFEN 800 MG TAB PO SCH ×3 (05:38→21:47)
[2017-01-08 08:00] VITALS: BP 95/61; PULSE 76; RESP 18
[2017-01-08] MEDS: SENNA/DOCUSATE NA (8.6MG/50MG) TAB PO SCH ×2 (08:38→20:47)
[2017-01-08 16:00] VITALS: BP 121/77; PULSE 93; RESP 18
--- NOTE | 2017-01-08 19:39 | QN ---
Documentation Comment No complaint Afebrile VSS Abdomen soft POD #2 Stable Continue with present care. JAKI VALDOVINOS MD Jan 08, 2017 19:38
[2017-01-08 20:30] VITALS: BP 99/60; PULSE 83; RESP 17
[2017-01-09 03:45] VITALS: BP 107/66; PULSE 91; RESP 18
[2017-01-09] MEDS: IBUPROFEN 800 MG TAB PO SCH ×3 (05:55→21:48)
[2017-01-09] MEDS: SENNA/DOCUSATE NA (8.6MG/50MG) TAB PO SCH ×2 (08:22→21:48)
[2017-01-09 08:26] VITALS: BP 100/57; PULSE 71; RESP 18
[2017-01-09] MEDS ORDERED: DIPHTH/TET/ACEL PERTUSS (ADULT) 0.5 ML VIAL IM* ONE (09:00)
[2017-01-09 16:20] VITALS: BP 110/59; PULSE 79; RESP 79
[2017-01-09 21:00] VITALS: BP 118/73; PULSE 85; RESP 16
[2017-01-10] MEDS: OXYCODONE/ACETAMINOPHEN (5/325) TAB PO PRN ×3 (00:23→17:52)
[2017-01-10 04:00] VITALS: BP 103/63; PULSE 71; RESP 18
[2017-01-10] MEDS: IBUPROFEN 800 MG TAB PO SCH ×2 (05:54→14:21)
[2017-01-10 07:30] VITALS: BP 120/60; PULSE 75; RESP 18
[2017-01-10] MEDS: SENNA/DOCUSATE NA (8.6MG/50MG) TAB PO SCH ×2 (09:05→21:00)
[2017-01-10 16:18] VITALS: BP 112/56; PULSE 78; RESP 19
[2017-01-10 20:35] VITALS: BP 110/65; PULSE 76; RESP 18
--- NOTE | 2017-01-10 21:29 | DS ---
DATE OF ADMISSION: 01/06/2017 DATE OF DISCHARGE: 01/10/2017 ADMITTING DIAGNOSIS: at term with previous section x2. HISTORY OF PRESENT ILLNESS: A 21-year-old female 4, para 2-0-1-1 at time of admission, para 3-0-1-2 at the time of discharge, with term was admitted for repeat section on 0 01/06/2017. After obtaining informed consent, the patient underwent a repeat low transverse section. Patient's operation was uncomplicated. Postoperatively, the patient was given clear liqu id diet, which was advanced to regular diet, which she tolerated well. The patient is discharged on postop day #4 after having had adequate bladder and bowel function. CONDITION ON DISCHARGE: Stable. DISCHARGE INSTRUCTIONS: DIET: Regular. ACTIVITIES: Pelvic rest and no strenuous activities. MEDICATIONS: 1. Motrin as needed for pain. 2. Continue with vitamins and ferrous sulfate. FOLLOWUP: Follow up in clinic in 1 week. FINAL DIAGNOSES: 1. Term , delivered by section. 2. Previous section. 3. Mother with single liveborn. Dictated By: JAKI DAO/NTS Conf#: [id number] DID#: [id number]
== END 2017-01-10 21:30 | disposition home or self-care (01) | DRG 766 ==
LOC: L-D 08:54 → PP1 15:50
PROVIDERS: ADMIT Obstetrics & Gynecology; ATTEND Obstetrics & Gynecology
PROC: 10D00Z1 Extraction of Products of Conception, Low, Open Approach (ICD-10-PCS; principal; 2017-01-06 12:30)
PROC: 3E0234Z Introduction of Serum, Toxoid and Vaccine into Muscle, Percutaneous Approach (ICD-10-PCS; 2017-01-09)
DX: O34.211 Maternal care for low transverse scar from previous cesarean delivery (principal); Z3A.39 39 weeks gestation of pregnancy; Z23 Encounter for immunization; Z37.0 Single live birth
CPT/HCPCS: 80307; 85025; 85610; 85730; 86592; 86850; 86900; 86901; 87340; 90686; 90715; 99464; J0290; J0690; J1170; J1885; J2274; J2370; J2405; J2590; J3010; J7120